=== PATIENT | male | born 1995 | race Hispanic/Latino ===

== ENCOUNTER 2020-08-26 13:05 | Emergency (ER) | payer OTHER ==
[2020-08-26] MEDS ORDERED: KETOROLAC TROMETHAMINE 60 MG/2 ML VIAL ONE (13:41)
[2020-08-26] MEDS ORDERED: DEXAMETHASONE SOD PHOSPHATE 10MG/ML 1ML VIAL ONE (13:41)
[2020-08-26] MEDS ORDERED: LORAZEPAM 2 MG/ML 1 ML VIAL ONE (13:42)
[2020-08-26] MEDS ORDERED: HYDROMORPHONE 1 MG/1 ML AMP ONE (13:42)
== END 2020-08-26 15:44 | disposition home or self-care (01) ==
LOC: EDH 13:05
DX: S39.012A Strain of muscle, fascia and tendon of lower back, initial encounter (principal); S39.013A Strain of muscle, fascia and tendon of pelvis, initial encounter; X58.XXXA Exposure to other specified factors, initial encounter; Y93.89 Activity, other specified; Y92.89 Other specified places as the place of occurrence of the external cause; Y99.8 Other external cause status
CPT/HCPCS: 72100; 96372 ×4; 99284; J1100; J1170; J1885; J2060

== ENCOUNTER 2024-08-29 07:51 | Emergency (ER) | payer OTHER ==
[~2024-08-29] VITALS: Ht 175.3 cm; Wt 89.4 kg
[2024-08-29 08:54] LABS: COVID19 (SARS ANTIGEN RAPID) PRESUMPTIVE NEGATIVE (NEGATIVE); INFLUENZA TYPE A Negative For Type A (NEGATIVE); INFLUENZA TYPE B Negative For Type B (NEGATIVE)
[2024-08-29 09:10] LABS: RAPID GROUP A STREP positive (NEGATIVE)
[2024-08-29] MEDS ORDERED: AMOX500C2 PO (09:18)
--- NOTE | 2024-08-29 09:18 | ERN ---
General Chief Complaint: Fever Stated Complaint: FEVER Time Seen by MD: 07:53 Source: patient History of Present Illness Initial Comments Patient is a 29-year-old male coming in to be evaluated for URI symptoms. Patient states that he has been having subjective fevers at home as well as nasal congestion and sore throat. Allergies: Coded Allergies: No Known Drug Allergies (Unverified Allergy, Unknown, 08/26/20) Past Medical History Past Medical History: Migraines, Other Medical History Other: herniated disk Past Surgical History: None ROS Dictation CONSTITUTIONAL: No chills, fever, no weakness, no diaphoresis, no malaise. HEAD/FACE: No signs of trauma. EENT: No eye pain, no blurred vision, no tearing, no double vision, no ear pain, no ear discharge, no nose pain, no nasal congestion, no throat pain, no throat swelling, no mouth pain. RESPIRATORY: No cough, no orthopnea, no SOB, no stridor, no wheezing. CARDIOVASCULAR: No chest pain, no edema, no palpitations, no syncope. GASTROINTESTINAL/ABDOMINAL: No abdominal pain, no constipation, no diarrhea, no nausea, no vomiting. GENITOURINARY: No abnormal discharge, no dysuria, no frequent urination, no hematuria. No complaints of pain in the genitals. MUSCULOSKELETAL: No back pain, no gout, no joint pain, no joint swelling, no muscle pain, no muscle stiffness, no neck pain. INTEGUMENTARY: No change in color, no change in hair/nails, no dryness, no lesion, no lumps, no rash. NEUROLOGICAL/PSYCH: No anxiety, not depressed, no emotional problem, no headache, no numbness, no pre-existing deficit, no history of seizures, no tremors, no weakness. HEMATOLOGIC/LYMPHATIC: Not anemic, no history of blood clots, no apparent bleeding, no bruising, glands not swollen. All Systems Negative, Except as Noted. Physical Exam Physical Exam Dictation VITAL SIGNS: Reviewed. GENERAL APPEARANCE: Alert, oriented x3, no acute distress, obese. HEAD AND FACE: Non-traumatic. EYES: PERRL, pink conjunctivas, eyelid no trauma, anterior chamber clear. EARS: Pinnas intact and no signs of trauma or erythema. Ear canals clear and no discharge. TMs no erythema. NOSE: No discharge, no bleeding. OROPHARYNX: Mouth normal, teeth no caries, tongue pink. Pharynx erythema. Tonsils exudates, no abscesses noted. Mucous membrane moist. NECK: Supple, non-tender, no thyromegaly, no masses, no JVD, no bruits. BREAST: Deferred. CHEST: No tenderness, no crepitus, no paradoxical movement, no retractions. LUNGS: Clear, well-ventilated, symmetric, no rales, no wheezing, no rhonchi, no stridor, good breath sounds bilaterally. HEART: Regular rate, regular rhythm, no murmur, no gallops. VASCULAR: No peripheral edema. ABDOMEN: Soft, positive bowel sounds, nondistended, no guarding, nontender, no rebound, no masses no hepatomegaly, no splenomegaly, no Guevara's sign, no hernias. RECTAL: Deferred. GENITAL: Deferred. NEUROLOGICAL: Normal speech, gross motor function intact, gross sensory function intact. MUSCULOSKELETAL: Neck nontender, full range of motion, back nontender, full range of motion. EXTREMITIES: Nontender, full range of motion. SKIN: Color pink, dry, no turgor, no rash, no lacerations, no abrasions, no contusions. LYMPHATICS: Deferred. Results Laboratory and Microbiology Lab and Micro Result Laboratory Tests Test 08/29/24 08:21 Influenza Type A Antigen Negative For Type A Influenza Type B Antigen Negative For Type B SARS-CoV-2 Antigen (Rapid) PRESUMPTIVE NEGATIVE Group A Streptococcus Rapid positive (NEGATIVE) *A MDM MDM: Differential diagnosis: URI, strep, influenza, COVID, Rationale: Tests considered and ordered secondary to shared decision making include: Previous outside records reviewed: Old ER visits. Risk of complication and/or morbidity or mortality of patient management: None Patient is a 29-year-old male coming in to be evaluated for URI symptoms. On physical exam there is oropharyngeal erythema with some exudate. Strep swab was positive. Patient will be discharged with oral antibiotics. I did advised him appropriate follow up with PCP in 1-2 days. ED Course Orders Procedure Category Date Status Time Influenza Type A & B, LAB 08/29/24 Complete Rapid 08:05 Rapid (Group A Strep) LAB 08/29/24 Complete 08:05 Covid19 (Sars Antigen LAB 08/29/24 Complete Rapid) 08:05 Vital Signs Date Time Temp Pulse Resp B/P (MAP) Pulse Ox O2 Delivery O2 Flow Rate FiO2 08/29/24 08:04 99.1 102 20 135/76 98 Room Air* 0 21 08/29/24 07:59 99.1 102 20 135/76 98 Room Air 0 DX & DISP Disposition: Discharge Departure Impression: Primary Impression: Strep pharyngitis Condition: Stable Scripts Amoxicillin (Amoxicillin) 500 Mg Capsule 1 CAP PO TID for 10 Days, #30 CAP 0 Refills Prov: LOLA ANAYA MD 08/29/24 Additional Instructions: FOLLOW-UP WITH PRIMARY CARE PROVIDER IN 1 TO 2 DAYS. TAKE MEDICATIONS DIRECTED HERE IN THE EMERGENCY ROOM. OKAY TO CONTINUE HOME MEDICATIONS UNLESS OTHERWISE DISCUSSED DURING YOUR VISIT IN THE EMERGENCY ROOM TODAY. RETURN TO YOUR NEAREST EMERGENCY ROOM IF SYMPTOMS WORSEN OR IF THERE IS NO IMPROVEMENT. CALL 911 IF YOU NEED IMMEDIATE ASSISTANCE. TAKE TYLENOL [id number] NEEDED AND IF NO CONTRAINDICATIONS ARE PRESENT. INCREASE ORAL HYDRATION. A WOUND CULTURE OR URINE CULTURE WAS ORDERED HERE IN THE EMERGENCY ROOM DEPARTMENT PLEASE FOLLOW-UP WITH PRIMARY CARE PROVIDER AND ADVISE THEM TO GET REPEAT PORTS FROM OUR FACILITY. IF YOU HAD ANY CORETTA WRAP/SPLINTS THAT WERE APPLIED HERE, PLEASE DO NOT REMOVE THEM UNTIL YOU SEE YOUR PRIMARY CARE OR SPECIALTY. Referrals: Referrals: DONELL TRAN MD Time of Disposition: 09:18 LOLA ANAYA MD Aug 29, 2024 09:18
[2024-08-29] MEDS: dexaMETHasone SOD PHOSPHATE 4 MG/ML 1ML VIAL IM ONE (09:45)
[2024-08-29] MEDS: ketOROlac 15MG/ML VIAL (15MG/ML) IM ONE (09:45)
[2024-08-29 09:49] VITALS: BP 113/76; PULSE 83; RESP 20; TEMP 99.1; O2SAT 96
--- NOTE | 2024-08-29 10:01 | NUR ---
PATIENT WAS DC'D BY DR. ANAYA TODAY, I EXPLAINED TO PATIENT TO FOLLOW UP WITH PCP, PROVIDED INFO BASED ON DIAGNOSIS, AND NEW PRESCRIPTION AND HOW TO TAKE THEM, I ANSWERED ANY FURTHER QUESTIONS FROM PATIENT, PATIENT AMBULATED OUT OF ED, NO COMPLICATIONS
== END 2024-08-29 10:00 | disposition home or self-care (01) ==
LOC: EDH 07:51
DX: J02.0 Streptococcal pharyngitis (principal); Z20.822 Contact with and (suspected) exposure to COVID-19
CPT/HCPCS: 99284; 87426; 87880; 87804 ×2; 96372 ×2; J1100; J1885